=== PATIENT | male | born 1945 | race Caucasian/White ===

== ENCOUNTER 2020-03-17 13:27 | Emergency (ER) | payer OTHER ==
[~2020-03-17] VITALS: Ht 180.3 cm; Wt 89.9 kg
[2020-03-17] MEDS ORDERED: ECOT81TA5 PO (13:45)
[2020-03-17] MEDS ORDERED: METO37.5 PO (13:57)
[2020-03-17] MEDS ORDERED: ATOR80TA59 PO (13:57)
[2020-03-17] MEDS ORDERED: fishoil PO (13:57)
[2020-03-17] MEDS ORDERED: LOSA50TA88 PO (13:57)
[2020-03-17] MEDS ORDERED: MULTCAP PO (13:57)
[2020-03-17 14:18] LABS: BASO # 0.1 10^3/uL (0.0-0.2); BASO % 0.5 % (0.0-1.0); EOS # 0.2 10^3/uL (0.0-0.5); EOS % 1.5 % (0.0-3.0); HEMATOCRIT 49.3 % (42.0-52.0); HEMOGLOBIN 16.7 g/dl (13.5-17.5); LYMPH # 3.3 10^3/uL (1.5-5.0); LYMPH % 31.7 % (24.0-44.0); MEAN CORPUSCULAR HEMOGLOBIN 29.7 pg (27.0-33.0); MEAN CORPUSCULAR HGB CONC 33.9 g/dl (32.0-36.5); MEAN CORPUSCULAR VOLUME 87.7 fl (80.0-96.0); MONO # 0.8 10^3/uL (0.0-0.8); MONO % 7.5 % (0.0-5.0); NEUTROPHILS % 58.2 % (36.0-66.0); PLATELET COUNT, AUTOMATED 275 10^3/uL (150-450); RED BLOOD COUNT 5.62 10^6/uL (4.30-6.10); WHITE BLOOD COUNT 10.3 10^3/uL (4.0-10.0)
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
[2020-03-17 14:24] LABS: BLOOD UREA NITROGEN 15 MG/DL (7-18); CALCIUM LEVEL 8.9 MG/DL (8.8-10.2); CARBON DIOXIDE LEVEL 22 MEQ/L (21-32); CHLORIDE LEVEL 109 MEQ/L (98-107); CREATININE FOR GFR 1.09 MG/DL (0.70-1.30); GLOMERULAR FILTRATION RATE > 60.0 (>42); GLUCOSE, FASTING 116 MG/DL (70-100); POTASSIUM SERUM 3.7 MEQ/L (3.5-5.1); SODIUM LEVEL 138 MEQ/L (136-145); TROPONIN I < 0.02 NG/ML (< 0.10)
[2020-03-17] MEDS ORDERED: ISOVUE-370 76% 100ML VIAL As Ordered ONE (14:55)
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
[2020-03-17 17:39] VITALS: BP 124/72
--- NOTE | 2020-03-24 10:50 | ECGEPIP ---
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
== END 2020-03-17 17:40 | disposition home or self-care (01) ==
LOC: M ED 13:27
DX: S20.219A Contusion of unspecified front wall of thorax, initial encounter (principal); V49.40XA Driver injured in collision with unspecified motor vehicles in traffic accident, initial encounter; J84.89 Other specified interstitial pulmonary diseases; N28.1 Cyst of kidney, acquired; K76.0 Fatty (change of) liver, not elsewhere classified; D71 Functional disorders of polymorphonuclear neutrophils; I10 Essential (primary) hypertension; E78.5 Hyperlipidemia, unspecified; Z79.899 Other long term (current) drug therapy
CPT/HCPCS: 36415; 71046; 71260; 74177; 80047; 80048; 84484; 85025; 93005; 93041; 94760; 99285; Q9967

== ENCOUNTER → 2023-06-22 | Outpatient (CLI) | payer MEDICARE ==
[~2023-06-22] MED LIST: ATOR80TA59 PO; ECOT81TA5 PO; LOSA50TA28 PO; METO37.5 PO; MULTCAP PO; fishoil PO
== END ==
LOC: M PLAIMG 11:10
PROVIDERS: ATTEND Internal Medicine Pulmonary Disease
DX: R91.8 Other nonspecific abnormal finding of lung field (principal)